=== PATIENT | male | born 1970 | race Caucasian/White ===

== ENCOUNTER 2017-02-25 07:56 | Emergency (ER) | payer OTHER ==
[~2017-02-25 07:56] MED LIST: FOLIC ACID1 M1 PO; GLUCOPHAGE1000 MG PO; HYDROXYCHLOROQ200 M1 PO; IBUPROFEN800 MG PO; METHOTREXATE2.5 MG PO; MULTIVITAMINS1 EAC6 PO; PREDNISONE10 MG PO; PREDNISONE5 M1 PO; PRILOSEC OTC20 M1 PO; ZITHROMAX500 MG PO; humira
[2017-02-25] MEDS ORDERED: NEURONTIN300 M1 PO (09:20)
[2017-02-25] MEDS ORDERED: FLOMAX0.4 M1 PO (09:21)
[2017-02-25] MEDS ORDERED: LIPITOR40 M1 PO (09:21)
[2017-02-25] MEDS ORDERED: ETODOLAC500 M1 PO (09:22)
[2017-02-25] MEDS ORDERED: BUPROPION XL300 M1 PO (09:22)
[2017-02-25] MEDS ORDERED: PRINIVIL20 M1 PO (09:23)
[2017-02-25] MEDS ORDERED: FENOFIBRATE145 M2 PO (09:23)
[2017-02-25] MEDS ORDERED: DULOXETINE HCL30 M1 PO (09:24)
[2017-02-25] MEDS ORDERED: TESTOSTERO200 MG/1 M IM (09:24)
[2017-02-25] MEDS ORDERED: XIGDUO XR 5 MG1 EAC1 PO ×2 (09:25→10:38)
[2017-02-25] MEDS ORDERED: LEVEMIR FL100 UNIT/2 SC (09:25)
[2017-02-25] MEDS ORDERED: METHOTREXA25 MG/113 SC (09:26)
[2017-02-25 09:29] LABS: KETONE-BETA (WHOLE BLOOD) 0.8 mmol/L (0.0-0.6)
[2017-02-25 09:32] LABS: BASO % 0.1 % (0-2); EOS % 0.3 % (0-7); HCT-HEMATOCRIT 39.8 % (36.0-53.5); HGB-HEMOGLOBIN 13.1 gm/dl (13.5-17.0); LYMPH % 7.6 % (20-45); LYMPH ABSOLUTE COUNT 0.8 tho/cmm (0.8-4.5); MCH (MEAN CORPUSCULAR HGB) 29.9 pg (28.0-32.0); MCHC MEAN CORPUSCULAR HGB CONC 32.9 % (32.0-36.0); MCV (MEAN CELL VOLUME) 90.9 fl (82.0-96.0); MEAN PLATELET VOLUME 10.3 cmc (9.4-12.4); MONOCYTE ABSOLUTE COUNT 1.2 tho/cmm (0.0-1.2); NEUTROPHIL ABSOLUTE COUNT 8.8 tho/cmm (1.6-8.0); NEUTROPHIL-AUTOMATED 8.8 tho/cmm (1.6-8.0); PLATELET COUNT 132 tho/cmm (150-450); RED BLOOD COUNT 4.38 mil/cmm (4.40-5.70); RED CELL DISTRIBUTION WIDTH 14.3 % (12.4-16.4); WHITE BLOOD COUNT 10.9 tho/cmm (4.0-10.0)
[2017-02-25 09:53] LABS: ALB/GLOB RATIO 0.5 (0.8-2.0); ALBUMIN 2.7 g/dl (3.5-5.0); ALKALINE PHOSPHATASE 50 U/L (33-138); ALT/SGPT 18 U/L (12-78); ANION GAP 16 mmol/L (0-20); AST/SGOT 14 U/L (10-40); BILIRUBIN,TOTAL 0.3 mg/dl (0.0-1.5); BLOOD UREA NITROGEN 19 mg/dl (6-24); CALCIUM 9.1 mg/dl (8.5-10.5); CARBON DIOXIDE-VENOUS 23 mmol/L (22-32); CHLORIDE 101 mmol/l (96-110); CREATININE 0.66 mg/dl (0.60-1.30); GLUCOSE 96 mg/dL (70-110); POTASSIUM 4.4 mmol/L (3.7-5.1); SODIUM 136 mmol/L (135-145); eGFR VALUE FOR BLACK >90 mL/Min
[2017-02-25 09:57] LABS: TSH-THYROID STIMULATING HORM. 0.43 uIU/ml (0.40-3.80)
[2017-02-25 10:07] LABS: URINE LEUKOCYTE ESTERASE NEGATIVE (NEG); URINE PH 6.5 (5.0-8.0); URINE PROTEIN SMALL (NEG)
[2017-02-25 10:08] LABS: URINE APPEARANCE CLEAR; URINE BILIRUBIN NEGATIVE (NEG); URINE BLOOD SMALL (NEG); URINE COLOR YELLOW; URINE GLUCOSE (UA) LARGE (NEG); URINE KETONE MODERATE (NEG); URINE NITRITE NEGATIVE (NEG)
[2017-02-25] MEDS ORDERED: PREVACID15 M2 PO (10:34)
[2017-02-25] MEDS ORDERED: ALLEGRA ALLERG180 M1 PO (10:37)
[2017-02-25 10:38] LABS: URINE EPITHELIAL CELLS 0-1 /[HPF] (0-10); URINE WBC 0-2 /[HPF] (0-5)
[2017-02-25] MEDS ORDERED: ASHWAGANDHA PO (10:39)
[2017-02-25] MEDS ORDERED: LEVEMIR100 UNITS/ SC (10:41)
[2017-02-25] MEDS ORDERED: NORCO 5-325 TA1 EACH PO (11:14)
== END 2017-02-25 12:52 ==
LOC: EDMED 07:56
PROVIDERS: Emergency Medicine
DX: I95.1 Orthostatic hypotension (principal); E86.0 Dehydration; E86.1 Hypovolemia; R52 Pain, unspecified; E11.9 Type 2 diabetes mellitus without complications; M06.9 Rheumatoid arthritis, unspecified; F17.200 Nicotine dependence, unspecified, uncomplicated; Z79.899 Other long term (current) drug therapy
CPT/HCPCS: J2270; J7030

== ENCOUNTER 2017-02-28 07:05 | Inpatient (IN) | payer OTHER ==
[~2017-02-28 07:05] MED LIST changes: +ALLEGRA ALLERG180 M1 PO; +ASHWAGANDHA PO; +BUPROPION XL300 M1 PO; +DULOXETINE HCL30 M1 PO; +ETODOLAC500 M1 PO; +FENOFIBRATE145 M2 PO; +FLOMAX0.4 M1 PO; +LEVEMIR FL100 UNIT/2 SC; +LEVEMIR100 UNITS/ SC; +LIPITOR40 M1 PO; +METHOTREXA25 MG/113 SC; +NEURONTIN300 M1 PO; +NORCO 5-325 TA1 EACH PO; +PREVACID15 M2 PO; +PRINIVIL20 M1 PO; +TESTOSTERO200 MG/1 M IM; +XIGDUO XR 5 MG1 EAC1 PO
[2017-02-28 07:38] LABS: BASO % 0.2 % (0-2); EOS % 0.5 % (0-7); EOSINOPHIL ABSOLUTE COUNT 0.1 tho/cmm (0.0-0.7); HCT-HEMATOCRIT 40.6 % (36.0-53.5); IMMATURE GRANULOCYTES ABSOLUTE 0.13 tho/cmm (0-0.03); IMMATURE GRANULOCYTES PERCENT 1.1 % (0-0.3); LYMPH % 8.6 % (20-45); MCHC MEAN CORPUSCULAR HGB CONC 34.5 % (32.0-36.0); MEAN PLATELET VOLUME 11.6 cmc (9.4-12.4); MONO % 15.5 % (0-12); MONOCYTE ABSOLUTE COUNT 1.9 tho/cmm (0.0-1.2); NEUTROPHIL ABSOLUTE COUNT 8.9 tho/cmm (1.6-8.0); NEUTROPHIL-AUTOMATED 8.9 tho/cmm (1.6-8.0); NEUTROPHILS % 74.1 % (40-80); PLATELET COUNT 121 tho/cmm (150-450); RED BLOOD COUNT 4.51 mil/cmm (4.40-5.70); RED CELL DISTRIBUTION WIDTH 14.3 % (12.4-16.4)
[2017-02-28 08:04] LABS: ALB/GLOB RATIO 0.5 (0.8-2.0); ALBUMIN 2.8 g/dl (3.5-5.0); ALKALINE PHOSPHATASE 54 U/L (33-138); ALT/SGPT 21 U/L (12-78); BILIRUBIN,TOTAL 0.5 mg/dl (0.0-1.5); BLOOD UREA NITROGEN 15 mg/dl (6-24); CALCIUM 9.3 mg/dl (8.5-10.5); CARBON DIOXIDE-VENOUS 25 mmol/L (22-32); CHLORIDE 100 mmol/l (96-110); CREATININE 0.82 mg/dl (0.60-1.30); GLUCOSE 122 mg/dL (70-110); SODIUM 135 mmol/L (135-145); eGFR VALUE FOR BLACK >90 mL/Min
[2017-02-28] MEDS ORDERED: HYDROCODON-ACE1 EA16 PO (08:08)
[2017-02-28 08:19] LABS: PROCALCITONIN 0.11 ng/ml (0.05-0.09)
[2017-02-28] MEDS ORDERED: NEURONTIN300 M1 PO (08:29)
[2017-02-28] MEDS ORDERED: PREDNISONE5 M1 PO (08:30)
[2017-02-28] MEDS ORDERED: TYLENOL ARTHRI650 M1 PO (08:30)
[2017-02-28 08:37] LABS: ANION GAP 15 mmol/L (0-20); AST/SGOT 15 U/L (10-40); CREATINE PHOSPHOKINASE (CPK) 35 U/L (35-232); POTASSIUM 4.5 mmol/L (3.7-5.1)
[2017-02-28 09:02] LABS: URINE LEUKOCYTE ESTERASE NEGATIVE (NEG); URINE PROTEIN MODERATE (NEG)
[2017-02-28 09:06] LABS: URINE APPEARANCE CLEAR; URINE BILIRUBIN MODERATE (NEG); URINE BLOOD SMALL (NEG); URINE COLOR YELLOW; URINE GLUCOSE (UA) LARGE (NEG); URINE KETONE MODERATE (NEG); URINE NITRITE NEGATIVE (NEG)
[2017-02-28 09:40] LABS: URINE RBC 0-2 /[HPF] (0-5)
[2017-03-01 05:33] LABS: BASO % 0.2 % (0-2); EOS % 0.7 % (0-7); EOSINOPHIL ABSOLUTE COUNT 0.1 tho/cmm (0.0-0.7); HCT-HEMATOCRIT 34.8 % (36.0-53.5); HGB-HEMOGLOBIN 11.4 gm/dl (13.5-17.0); IMMATURE GRANULOCYTES ABSOLUTE 0.11 tho/cmm (0-0.03); IMMATURE GRANULOCYTES PERCENT 1.2 % (0-0.3); LYMPH % 20.3 % (20-45); LYMPH ABSOLUTE COUNT 1.8 tho/cmm (0.8-4.5); MCH (MEAN CORPUSCULAR HGB) 29.6 pg (28.0-32.0); MCHC MEAN CORPUSCULAR HGB CONC 32.8 % (32.0-36.0); MCV (MEAN CELL VOLUME) 90.4 fl (82.0-96.0); MEAN PLATELET VOLUME 10.5 cmc (9.4-12.4); MONO % 14.6 % (0-12); MONOCYTE ABSOLUTE COUNT 1.3 tho/cmm (0.0-1.2); NEUTROPHIL ABSOLUTE COUNT 5.5 tho/cmm (1.6-8.0); NEUTROPHIL-AUTOMATED 5.5 tho/cmm (1.6-8.0); PLATELET COUNT 167 tho/cmm (150-450); RED BLOOD COUNT 3.85 mil/cmm (4.40-5.70); RED CELL DISTRIBUTION WIDTH 14.5 % (12.4-16.4); WHITE BLOOD COUNT 8.8 tho/cmm (4.0-10.0)
[2017-03-01 05:47] LABS: BLOOD UREA NITROGEN 13 mg/dl (6-24); CARBON DIOXIDE-VENOUS 27 mmol/L (22-32); CHLORIDE 108 mmol/l (96-110); CREATININE 0.62 mg/dl (0.60-1.30); GLUCOSE 95 mg/dL (70-110); SODIUM 143 mmol/L (135-145); eGFR VALUE FOR BLACK >90 mL/Min
[2017-03-01 05:54] LABS: ANION GAP 12 mmol/L (0-20); MAGNESIUM 2.1 mg/dl (1.8-2.6)
[2017-03-01 05:55] LABS: POTASSIUM 4.2 mmol/L (3.7-5.1)
[2017-03-02 04:48] LABS: BASO % 0.2 % (0-2); EOS % 0.6 % (0-7); EOSINOPHIL ABSOLUTE COUNT 0.1 tho/cmm (0.0-0.7); HCT-HEMATOCRIT 34.4 % (36.0-53.5); HGB-HEMOGLOBIN 11.1 gm/dl (13.5-17.0); IMMATURE GRANULOCYTES ABSOLUTE 0.04 tho/cmm (0-0.03); IMMATURE GRANULOCYTES PERCENT 0.4 % (0-0.3); LYMPH % 12.6 % (20-45); LYMPH ABSOLUTE COUNT 1.2 tho/cmm (0.8-4.5); MCH (MEAN CORPUSCULAR HGB) 29.7 pg (28.0-32.0); MCHC MEAN CORPUSCULAR HGB CONC 32.3 % (32.0-36.0); MEAN PLATELET VOLUME 9.9 cmc (9.4-12.4); MONO % 13.7 % (0-12); MONOCYTE ABSOLUTE COUNT 1.3 tho/cmm (0.0-1.2); NEUTROPHIL ABSOLUTE COUNT 7.1 tho/cmm (1.6-8.0); NEUTROPHIL-AUTOMATED 7.1 tho/cmm (1.6-8.0); NEUTROPHILS % 72.5 % (40-80); PLATELET COUNT 180 tho/cmm (150-450); RED BLOOD COUNT 3.74 mil/cmm (4.40-5.70); RED CELL DISTRIBUTION WIDTH 14.4 % (12.4-16.4); WHITE BLOOD COUNT 9.7 tho/cmm (4.0-10.0)
[2017-03-02 04:59] LABS: ANION GAP 11 mmol/L (0-20); BLOOD UREA NITROGEN 9 mg/dl (6-24); CALCIUM 8.3 mg/dl (8.5-10.5); CARBON DIOXIDE-VENOUS 29 mmol/L (22-32); CHLORIDE 104 mmol/l (96-110); CREATININE 0.59 mg/dl (0.60-1.30); GLUCOSE 102 mg/dL (70-110); MAGNESIUM 1.9 mg/dl (1.8-2.6); SODIUM 140 mmol/L (135-145); eGFR VALUE FOR BLACK >90 mL/Min
[2017-03-02] MEDS ORDERED: NORCO 5-325 TA1 EACH PO (10:00)
[2017-03-02] MEDS ORDERED: PRINIVIL5 M1 PO (10:00)
[2017-03-02] MEDS ORDERED: ASPIRIN81 M1 PO (10:50)
== END 2017-03-02 11:10 | DRG 39 ==
LOC: EDMED 07:05 → EMR2 10:47 → CAR1 11:51 → ORW 03-01 12:00 → PACU 03-01 14:09 → CCU 03-01 15:20
PROVIDERS: Emergency Medicine; ADMIT Internal Medicine
PROC: 03CK0ZZ Extirpation of Matter from Right Internal Carotid Artery, Open Approach (ICD-10-PCS; principal; 2017-03-01)
DX: I65.21 Occlusion and stenosis of right carotid artery (principal); I10 Essential (primary) hypertension; E86.0 Dehydration; E11.9 Type 2 diabetes mellitus without complications; E78.5 Hyperlipidemia, unspecified; M06.9 Rheumatoid arthritis, unspecified; R91.8 Other nonspecific abnormal finding of lung field; Z87.891 Personal history of nicotine dependence; Z85.828 Personal history of other malignant neoplasm of skin; Z79.4 Long term (current) use of insulin
CPT/HCPCS: C8929; J0690; J1644; J1720; J2250; J3010; J7030; J7040; J7512; Q9967

== ENCOUNTER 2017-03-04 05:07 | Emergency (ER) | payer OTHER ==
[~2017-03-04 05:07] MED LIST changes: +ASPIRIN81 M1 PO; +HYDROCODON-ACE1 EA16 PO; +PRINIVIL5 M1 PO; +TYLENOL ARTHRI650 M1 PO
[2017-03-04 06:24] LABS: INR 1.1 INR (0.9-1.1)
[2017-03-04 06:25] LABS: BASO % 0.1 % (0-2); EOS % 0.7 % (0-7); EOSINOPHIL ABSOLUTE COUNT 0.1 tho/cmm (0.0-0.7); HCT-HEMATOCRIT 37.9 % (36.0-53.5); HGB-HEMOGLOBIN 12.5 gm/dl (13.5-17.0); IMMATURE GRANULOCYTES ABSOLUTE 0.14 tho/cmm (0-0.03); IMMATURE GRANULOCYTES PERCENT 0.9 % (0-0.3); LYMPH % 13.6 % (20-45); LYMPH ABSOLUTE COUNT 2.2 tho/cmm (0.8-4.5); MCH (MEAN CORPUSCULAR HGB) 29.9 pg (28.0-32.0); MCV (MEAN CELL VOLUME) 90.7 fl (82.0-96.0); MEAN PLATELET VOLUME 10.7 cmc (9.4-12.4); MONO % 6.9 % (0-12); MONOCYTE ABSOLUTE COUNT 1.1 tho/cmm (0.0-1.2); NEUTROPHIL ABSOLUTE COUNT 12.8 tho/cmm (1.6-8.0); NEUTROPHIL-AUTOMATED 12.8 tho/cmm (1.6-8.0); NEUTROPHILS % 77.8 % (40-80); RED BLOOD COUNT 4.18 mil/cmm (4.40-5.70); RED CELL DISTRIBUTION WIDTH 14.2 % (12.4-16.4); WHITE BLOOD COUNT 16.4 tho/cmm (4.0-10.0)
[2017-03-04 06:50] LABS: ALB/GLOB RATIO 0.5 (0.8-2.0); ALBUMIN 2.4 g/dl (3.5-5.0); ALKALINE PHOSPHATASE 51 U/L (33-138); ALT/SGPT 17 U/L (12-78); ANION GAP 14 mmol/L (0-20); AST/SGOT 16 U/L (10-40); BILIRUBIN,TOTAL 0.3 mg/dl (0.0-1.5); BLOOD UREA NITROGEN 11 mg/dl (6-24); CALCIUM 8.8 mg/dl (8.5-10.5); CARBON DIOXIDE-VENOUS 27 mmol/L (22-32); CHLORIDE 100 mmol/l (96-110); CREATININE 0.56 mg/dl (0.60-1.30); GLUCOSE 121 mg/dL (70-110); MAGNESIUM 1.7 mg/dl (1.8-2.6); POTASSIUM 4.1 mmol/L (3.7-5.1); SODIUM 137 mmol/L (135-145); eGFR VALUE FOR BLACK >90 mL/Min
[2017-03-04 06:51] LABS: CREATINE PHOSPHOKINASE (CPK) 29 U/L (35-232)
[2017-03-04 06:55] LABS: TSH-THYROID STIMULATING HORM. 0.92 uIU/ml (0.40-3.80)
[2017-03-04 07:34] LABS: PROCALCITONIN 0.09 ng/ml (0.05-0.09)
[2017-03-04 07:34] LABS: ESR-ERYTHROCYTE SED RATE 62 mm/hr (0-15)
[2017-03-04 07:58] LABS: URINE LEUKOCYTE ESTERASE POSITIVE (NEG); URINE PROTEIN MODERATE (NEG); URINE SPECIFIC GRAVITY 1.015 (1.003-1.030)
[2017-03-04 07:59] LABS: URINE BILIRUBIN MODERATE (NEG); URINE BLOOD SMALL (NEG); URINE GLUCOSE (UA) SMALL (NEG); URINE KETONE SMALL (NEG); URINE NITRITE NEGATIVE (NEG)
[2017-03-04 08:00] LABS: URINE APPEARANCE CLEAR; URINE COLOR YELLOW
[2017-03-04 08:10] LABS: URINE MUCUS 3+
[2017-03-04 08:11] LABS: URINE EPITHELIAL CELLS 0 /[HPF] (0-10); URINE RBC 0-3 /[HPF] (0-5)
== END 2017-03-04 10:14 ==
LOC: EDMED 05:07
PROVIDERS: Emergency Medicine
DX: I95.1 Orthostatic hypotension (principal); M06.9 Rheumatoid arthritis, unspecified; E11.9 Type 2 diabetes mellitus without complications; Z85.828 Personal history of other malignant neoplasm of skin; Z79.4 Long term (current) use of insulin; Z79.899 Other long term (current) drug therapy; Z87.891 Personal history of nicotine dependence; Z90.89 Acquired absence of other organs
CPT/HCPCS: J1720; J7030

== ENCOUNTER 2017-04-09 14:26 | Inpatient (IN) | payer OTHER ==
[2017-04-09] MEDS ORDERED: ULTRAM50 M1 PO (15:21)
[2017-04-09] MEDS ORDERED: CALTRATE 600+D1 EAC2 PO (15:21)
[2017-04-09] MEDS ORDERED: VITAMIN E400 UNI6 PO (15:22)
[2017-04-09] MEDS ORDERED: VITAMIN D5000 UNI2 PO (15:22)
[2017-04-09] MEDS ORDERED: BYDUREON P2 MG/0.65 SC (15:23)
[2017-04-09 15:36] LABS: ALB/GLOB RATIO 0.5 (0.8-2.0); ALBUMIN 2.6 g/dl (3.5-5.0); ALKALINE PHOSPHATASE 42 U/L (33-138); ALT/SGPT 15 U/L (12-78); ANION GAP 13 mmol/L (0-20); AST/SGOT 9 U/L (10-40); BILIRUBIN,TOTAL 0.3 mg/dl (0.0-1.5); BLOOD UREA NITROGEN 13 mg/dl (6-24); CALCIUM 8.7 mg/dl (8.5-10.5); CARBON DIOXIDE-VENOUS 27 mmol/L (22-32); CHLORIDE 100 mmol/l (96-110); GLUCOSE 126 mg/dL (70-110); SODIUM 136 mmol/L (135-145); eGFR VALUE FOR BLACK >90 mL/Min
[2017-04-09 15:42] LABS: BASO % 0.2 % (0-2); EOS % 0.5 % (0-7); EOSINOPHIL ABSOLUTE COUNT 0.1 tho/cmm (0.0-0.7); HCT-HEMATOCRIT 35.9 % (36.0-53.5); HGB-HEMOGLOBIN 11.6 gm/dl (13.5-17.0); IMMATURE GRANULOCYTES ABSOLUTE 0.07 tho/cmm (0-0.03); IMMATURE GRANULOCYTES PERCENT 0.5 % (0-0.3); LYMPH % 10.6 % (20-45); LYMPH ABSOLUTE COUNT 1.4 tho/cmm (0.8-4.5); MCH (MEAN CORPUSCULAR HGB) 28.5 pg (28.0-32.0); MCHC MEAN CORPUSCULAR HGB CONC 32.3 % (32.0-36.0); MCV (MEAN CELL VOLUME) 88.2 fl (82.0-96.0); MEAN PLATELET VOLUME 8.2 cmc (9.4-12.4); MONO % 10.2 % (0-12); MONOCYTE ABSOLUTE COUNT 1.3 tho/cmm (0.0-1.2); NEUTROPHIL ABSOLUTE COUNT 10.1 tho/cmm (1.6-8.0); NEUTROPHIL-AUTOMATED 10.1 tho/cmm (1.6-8.0); RED BLOOD COUNT 4.07 mil/cmm (4.40-5.70); RED CELL DISTRIBUTION WIDTH 14.5 % (12.4-16.4)
[2017-04-09 15:43] LABS: PLATELET COUNT 287 tho/cmm (150-450)
[2017-04-09 18:38] LABS: URINE LEUKOCYTE ESTERASE NEGATIVE (NEG); URINE PROTEIN SMALL (NEG)
[2017-04-09 18:43] LABS: URINE APPEARANCE CLEAR; URINE BILIRUBIN NEGATIVE (NEG); URINE BLOOD NEGATIVE (NEG); URINE COLOR PALE YELLOW; URINE GLUCOSE (UA) LARGE (NEG); URINE KETONE NEGATIVE (NEG); URINE NITRITE NEGATIVE (NEG); URINE SPECIFIC GRAVITY <1.002 (1.003-1.030)
[2017-04-09 18:49] LABS: URINE RBC 0 /[HPF] (0-5); URINE WBC 0 /[HPF] (0-5)
[2017-04-09 18:50] LABS: URINE EPITHELIAL CELLS RARE /[HPF] (0-10)
[2017-04-09 19:30] LABS: ALCOHOL (ETOH) <10 mg/dl (<10); C-REACTIVE PROTEIN 12.8 mg/dl (0-0.9)
[2017-04-09 19:32] LABS: CREATINE PHOSPHOKINASE (CPK) 17 U/L (35-232)
[2017-04-09 19:40] LABS: PROCALCITONIN 0.14 ng/ml (0.05-0.09)
[2017-04-09] MEDS ORDERED: REMICADE100 MG IV (20:25)
[2017-04-10 05:43] LABS: BASO % 0.1 % (0-2); EOS % 0.2 % (0-7); HGB-HEMOGLOBIN 11.9 gm/dl (13.5-17.0); IMMATURE GRANULOCYTES ABSOLUTE 0.07 tho/cmm (0-0.03); IMMATURE GRANULOCYTES PERCENT 0.6 % (0-0.3); LYMPH ABSOLUTE COUNT 1.4 tho/cmm (0.8-4.5); MCH (MEAN CORPUSCULAR HGB) 28.3 pg (28.0-32.0); MCHC MEAN CORPUSCULAR HGB CONC 32.2 % (32.0-36.0); MCV (MEAN CELL VOLUME) 88.1 fl (82.0-96.0); MEAN PLATELET VOLUME 10.7 cmc (9.4-12.4); MONO % 10.5 % (0-12); MONOCYTE ABSOLUTE COUNT 1.3 tho/cmm (0.0-1.2); NEUTROPHIL ABSOLUTE COUNT 9.6 tho/cmm (1.6-8.0); NEUTROPHIL-AUTOMATED 9.6 tho/cmm (1.6-8.0); NEUTROPHILS % 77.6 % (40-80); RED CELL DISTRIBUTION WIDTH 14.9 % (12.4-16.4); WHITE BLOOD COUNT 12.3 tho/cmm (4.0-10.0)
[2017-04-10 05:51] LABS: PLATELET COUNT 255 tho/cmm (150-450)
[2017-04-10 06:04] LABS: MAGNESIUM 2.1 mg/dl (1.8-2.6); PHOSPHOROUS 3.4 mg/dl (2.5-4.9)
[2017-04-10 06:07] LABS: TSH-THYROID STIMULATING HORM. 0.26 uIU/ml (0.40-3.80)
[2017-04-10] MEDS ORDERED: DELTASONE20 MG PO (17:07)
[2017-04-10] MEDS ORDERED: PERCOCET 5-3251 EACH PO (17:08)
[2017-04-10] MEDS ORDERED: MIRALAX17 G2 PO (17:11)
[2017-04-10] MEDS ORDERED: CYCLOBENZAPRINE5 M1 PO (17:12)
== END 2017-04-10 18:36 | DRG 312 ==
LOC: EDMED 14:26 → EMR2 18:58 → 5WD 19:50
PROVIDERS: Emergency Medicine; ADMIT Internal Medicine
DX: R55 Syncope and collapse (principal); M79.7 Fibromyalgia; M06.9 Rheumatoid arthritis, unspecified; G89.29 Other chronic pain; E11.9 Type 2 diabetes mellitus without complications; D72.829 Elevated white blood cell count, unspecified; F10.21 Alcohol dependence, in remission; M54.9 Dorsalgia, unspecified; R91.8 Other nonspecific abnormal finding of lung field; R59.0 Localized enlarged lymph nodes; I73.9 Peripheral vascular disease, unspecified; N40.0 Benign prostatic hyperplasia without lower urinary tract symptoms; R00.0 Tachycardia, unspecified; Z87.891 Personal history of nicotine dependence; Z79.82 Long term (current) use of aspirin; Z79.4 Long term (current) use of insulin; Z79.899 Other long term (current) drug therapy
CPT/HCPCS: C8929; G0480; J1170; J1720; J1815; J2270; J2405; J7030; Q9967